=== PATIENT | male | born 1960 | race Caucasian/White ===

== ENCOUNTER → 2018-02-28 | Outpatient (CLI) | payer OTHER ==
[~2018-02-28] MED LIST: LISINOPRIL40 MG PO; PRINIVIL; SIMVASTATIN40 MG PO; SPIRONOLACTONE50 MG PO; TOPROL XL50 MG PO; ZOCOR
== END ==
LOC: M.ULTRA 07:58
DX: R22.1 Localized swelling, mass and lump, neck (principal); I10 Essential (primary) hypertension; E78.00 Pure hypercholesterolemia, unspecified; E78.5 Hyperlipidemia, unspecified